=== PATIENT | female | born 2000 | race Caucasian/White ===

== ENCOUNTER 2024-06-14 16:56 | Emergency (ER) | payer MEDICAID ==
[~2024-06-14] VITALS: Ht 162.6 cm; Wt 72.7 kg
[2024-06-14 17:02] VITALS: BP 135/62; PULSE 88; RESP 16; TEMP 97.1; O2SAT 97
[2024-06-14] MEDS ORDERED: ACET-2080 PO (18:36)
[2024-06-14] MEDS ORDERED: IBUP-1554 PO (18:36)
[2024-06-14] MEDS: IBUPROFEN 600 MG TABLET PO ONE (18:46)
[2024-06-14] MEDS: ACETAMINOPHEN/CODEINE 300-30 MG TABLET PO ONE (18:46)
== END 2024-06-14 20:57 | disposition home or self-care (01) ==
LOC: EMS 17:40
DX: S46.811A Strain of other muscles, fascia and tendons at shoulder and upper arm level, right arm, initial encounter (principal); S80.01XA Contusion of right knee, initial encounter; V43.52XA Car driver injured in collision with other type car in traffic accident, initial encounter; Y93.89 Activity, other specified; Y92.410 Unspecified street and highway as the place of occurrence of the external cause
CPT/HCPCS: 99283